=== PATIENT | female | born 1980 | race Caucasian/White ===

== ENCOUNTER 2024-03-26 09:15 | Emergency (ER) | payer OTHER, SELFPAY ==
[2024-03-26 09:19] VITALS: BP 154/97
--- NOTE | 2024-03-26 10:29 | ED.GENMED ---
History of Present Illness
General
Chief Complaint: Musculo-Skeletal Complaint
Source: patient
Exam Limitations: none
Time Seen by Provider: 03/26/24 10:13
Nursing documentation reviewed up to this point in time: agreed with
History of Present Illness
History of Present Illness:
43 y/o F with h/o GERD, PCOS, elevated BMI
here with known L meniscus tear from last week injury while she was OOT.
she went to a local ER in [place] where she was and ended up being admitted, had MRI showing the meniscus tear. she was given rx for oxycodone for pain and motrin and aleve which she has been taking; she ran out of the oxy and now pain is worse
she is having trouble using the walker
she has no brace because one would not fit on her knee
she has appt with [facility] in 4 days but says she cannot wait that long for pain medication
she denies any new injury since being home
she has pain an dsweling posterior and lateral knee on the L consistnet since the injury
she has a partial tear chronic on the R meniscus and feels this is also aggravated by her leaning on that leg more
no redness, warmth, to the knee, no fever, no foot drop, no numbness
pt is tearful
Past History
Past History
ED Past Medical History: Asthma, Psychiatric (Anxiety/depression) and Other (PCOS, migraine headaches)
ED Past Surgical History: Cardiac (Patent ductus arteriosus repair), and Orthopedic (Right knee)
Social History
Tobacco: Non-smoker
Alcohol: None
Personal:
Living: with family
Employment: Employed
Family History
Family History: Other (Noncontributory)
Review of Systems
Review of Systems
Allergies reviewed?: Yes
All Other Systems: Not applicable
Phy Exam
Physical Exam
Physical Exam:
GENERAL: Alert elevated BMI, tearful
HEAD: NCAT
CV: 2+ DP PULSES B/L
NEUROLOGICAL: Alert and oriented, no focal neuro deficits, , 5/5 strength, sensation intact, ambulation slight limp right leg
SKIN: Warm and dry, no erythema, no warmth to the knee
MUSCULOSKELETAL: mild to mod sweling to the L knee on inspection, normal skin
tender anteriorly
pain with any rom which is limited
calf normal
pulse dp normal
cap refill normal
ankle and foot normal
PSYCH: Normal and appropriate interaction.
Course
Orders/Labs/Results
Orders:
Orders
03/26/24 10:28
Case Management Consult ONCE
Case Management Consult: Durable Medical Equip
Vital Signs
Initial and Last Documented VS:
Initial Vital Signs
Temp Pulse Resp BP Pulse Ox
98.9 F 89 20 154/97 97
03/26/24 09:19 03/26/24 09:19 03/26/24 09:19 03/26/24 09:19 03/26/24 09:19
Last Documented Vital Signs
Temp Pulse Resp BP Pulse Ox
98.7 F 82 15 150/88 97
03/26/24 12:34 03/26/24 12:34 03/26/24 12:34 03/26/24 12:34 03/26/24 12:34
MDM/Problems Addressed
Differential Diagnosis Includes:
meniscus tear, knee pain
MDM/Problems Addressed:
new meniscus tear on MRI from a few days ago at outside facility
has scheduled ortho f/u
wlaker at home
no immboilization due to body habitus
but with inc pain
severe pain in left knee with some swellign
no redness/warmth
PDMP consulted; has had opiates in the past, recently from hospitalization as well as other abiton physicians but not chronically
pt is very tearful she has to wlak a distance for tomorrow
consulted case management for wheelchair to help her get around until can see ortho
short course oxycodone for pain
pt is aware we will not refill this
*Critical Care Note
Total Time (30-74mins, 75-104mins- exclusive of procedures): Not Applicable
ED Attending Note
-
Portions of this chart may have been created with voice recognition software.� Occasional wrong word or��sound alike� substitutions may have occurred due to the inherent limitations of voice recognition software.
Discharge Plan
Departure
Patient Disposition: Home (Routine Discharge)
Date of Disposition: 03/26/24
Time of Disposition:
Patient with high blood pressure during this ER visit?: Yes
Condition: Fair
Covid-19: Not Applicable
Discharge Problem:
Pain in left knee
Instructions: Knee Pain (DC)
Prescriptions:
New
meloxicam 15 mg tablet
15 mg PO DAILY Qty: 10 0RF
oxycodone 5 mg tablet
5 mg PO Q8H PRN (Reason: Pain) Qty: 9 0RF
Referrals:
NONE,* [Family Provider] -
Byron Tavera MD [Active] - Follow up in 5-7 days (ortho)
Activity Restrictions/Additional Instructions:
YOU SHOULD REST WHEN YOU CAN
ICE OFF AND ON
INSTEAD OF ALEVE AND MOTRIN TRY MELOXICAM 15 MG ONCE A DAY WITH SOMETHING IN YOUR STOMACH
TYLENOL 1000 MG 3 TIMES A DAY
AND FOR SEVERE PAIN OXYCODONE 5 MG EVERY 8 HOURS NEEDED
WE WILL NOT BE REFILLING PAIN MEDICATION FROM THE EMERGENCY DEPARTMENT
RETURN FOR ANY CONCERNS.
WE WERE ABLE TO ARRANGE FOR A WHEELCHAIR TO HELP YOU WITH THE TOMORROW.
Interventions
Interventions:
*Risk Screen - Suicide Last Done: 03/26/24 12:25
*General Assessment Last Done: 03/26/24 12:25
*Neglect/Abuse Screening Last Done: 03/26/24 12:25
ED- Fall Risk Assessment Last Done: 03/26/24 12:30
*ED COVID-19 Vaccine History Last Done: 03/26/24 12:25
*Nursing Disposition Last Done: 03/26/24 12:34
ED-Musculoskeletal Assessment Last Done: 03/26/24 12:33
Discharge Date and Time
Discharge Date/Time: 03/26/24 12:35
Print Language: INDONESIAN
--- NOTE | 2024-03-26 11:31 | CM ---
CM met with patient in room. Patient confirmed demgraphics. Patient stated that she has an up coming tomorrow and it worried that she won't be able to tolerate ambulating. CM ordered wheelchair from [facility]. Patient's given number for [employer]
to arrange for delivery when she arrives home. Patient is appreciative and will follow up with [facility].
MISSY updated ED PA.
[2024-03-26 12:09] VITALS: BMI 50.5
[2024-03-26 12:34] VITALS: BP 150/88
== END 2024-03-26 12:35 | disposition home or self-care (01) ==
LOC: EMR 09:15
PROVIDERS: EMERGENCY PHYSICIAN Student in an Organized Health Care Education/Training Program
DX: M25.562 Pain in left knee (principal); J45.909 Unspecified asthma, uncomplicated; F41.8 Other specified anxiety disorders; E28.2 Polycystic ovarian syndrome; K21.9 Gastro-esophageal reflux disease without esophagitis
CPT/HCPCS: 99282

== ENCOUNTER 2024-03-30 13:06 | Emergency (ER) | payer OTHER, SELFPAY ==
[2024-03-30] VITALS (9 sets, daily range): BP systolic 108–138; BP diastolic 61–92; BMI 59.6
[2024-03-30] MEDS: NITROSTAT (SUBLINGUAL) 0.4 MG SL ×2 (13:33→14:48)
[2024-03-30 13:40] LABS: % Basophils 0.3 % (0-2); % Eosinophils 0.6 % (0-6); % Immature Granulocytes 0.3 % (0-0.5); % Neutrophils 69.8 % (42.2-75.2); Absolute Eosinophils 0.1 10^3/uL (0-0.7); Absolute Lymphocytes 1.8 10^3/uL (1.2-3.4); Absolute Monocytes 0.5 10^3/uL (0.1-0.6); Absolute Neutrophils 5.6 10^3/uL (1.4-6.5); Hematocrit 33.6 % (37.0-47.0); Hemoglobin 10.7 g/dL (12.0-16.0); Mean Corp Hgb Conc. 31.8 g/dL (33.0-37.0); Mean Corpuscular Hgb 25.2 pg (27.0-31.0); Mean Corpuscular Volume 79.2 fL (81.0-99.0); Mean Platelet Volume 9.9 fL (7.4-10.4); Nucleated Red Blood Cells % 0 %; Platelet Count 235 10^3/uL (130-400); Red Blood Cell Count 4.24 10^6/uL (4.20-5.40); Red Cell Dist. Width 15.9 % (11.5-14.5)
[2024-03-30 13:50] LABS: ALT (SGPT) 40 U/L (0-35); AST (SGOT) 37 U/L (14-36); Albumin 3.5 g/dl (3.5-5.0); Alkaline Phosphatase 76 U/L (38-126); Blood Urea Nitrogen 13 mg/dl (7-17); Calcium 8.8 mg/dl (8.4-10.2); Carbon Dioxide 30 mmol/L (22-30); Chloride 105 mmol/L (98-107); Estimated Creatinine Clearance > 125 ml/min; Glucose 92 mg/dl (70-99); Potassium 4.6 mmol/L (3.5-5.1); Sodium 142 mmol/L (135-145); Total Bilirubin 0.4 mg/dl (0.2-1.3); Total Protein 6.3 g/dl (6.3-8.2); eGFR > 60.00
[2024-03-30 14:02] LABS: NT-proBNP 94.8 pg/ml; Troponin I < 0.012 ng/ml
[2024-03-30] MEDS: TYLENOL 1000 MG PO (14:47)
--- NOTE | 2024-03-30 14:55 | ED.GENMED ---
History of Present Illness
General
Chief Complaint: Chest Pain
Source: patient
Exam Limitations: none
Time Seen by Provider: 03/30/24 14:41
Nursing documentation reviewed up to this point in time: agreed with
History of Present Illness
History of Present Illness:
43-year-old female past medical history of reflux migraines PCOS anemia anxiety depression questionable diagnosis of heart failure repair presents to the ER for evaluation. Patient reports she instantly woke up at 4:30 in the morning with stabbing
pain under her bilateral breasts and into her chest and jaw she also feels pain in bilateral shoulders and right neck. She tells me apparently she has a diagnosis of congestive heart failure 'on her chart from [facility]' but has not seen cardiology
yet. She reports she did have lower extremity swelling and her doctor recommended cardiology follow-up but did not see them yet. She has appt end of .
Patient reports he normally does get short of breath with exertion this is not new. She is a smoker. She has not oral contraceptives. No prior history PE DVT. She denies lower extremity swelling now. She denies any history of reflux but does
report she is on Protonix because she is on meloxicam and is instructed to take this for her stomach.
Past History
Past History
ED Past Medical History: Asthma, Psychiatric (Anxiety/depression) and Other (PCOS, migraine headaches)
ED Past Surgical History: Cardiac (Patent ductus arteriosus repair), and Orthopedic (Right knee)
Social History
Tobacco: Non-smoker
Alcohol: None
Personal:
Living: with family
Employment: Employed
Family History
Family History: Other (Noncontributory)
Review of Systems
Review of Systems
Allergies reviewed?: Yes
All Other Systems: ROS reviewed and negative except as documented in HPI and ROS
Constitutional: Reports no symptoms; Denies fever, fatigue or chills
Respiratory: Reports trouble breathing (sob with exertion this is not new )
Cardiac: Reports chest pain
: Reports no symptoms
Musculoskeletal: Reports no symptoms
Skin: Reports no symptoms
Neurological: Reports no symptoms
Psychiatric: Reports no symptoms
Phy Exam
General Physical Exam
General Presentation: no apparent distress
General age: appears stated age
General Skin: warm and dry
General Habitus: obese
General Mental: alert
General Hydration: appears well hydrated
Cardiovascular Exam
Cardiovascular Exam: regular rate/rhythm, no murmur and normal peripheral pulses
Pulmonary Exam
Pulmonary Exam: lungs clear
Neurological Exam
Neurological Exam: alert and oriented x3
Musculoskeletal Exam
Musculoskeletal Exam: full ROM
Skin Exam
Skin Exam: normal color and warm/dry
Psychiatric Exam
Psychiatric Exam: normal mood/affect
Scores
Heart Score for Chest Pain Patients
STEMI patient?: Not applicable
Course
Orders/Labs/Results
Orders:
Orders
03/30/24 13:09
Electrocardiogram (*1) Urgent
Reason for Study: Chest Pain
CXR2 [CR Chest - 2 Views ] Urgent
Comment:
Reason For Exam: Chest Pain
03/30/24 13:10
EKG- Treatment ONCE
03/30/24 13:30
Complete Blood Count/With Diff Urgent
Comprehensive Metabolic Panel Urgent
NT-proBNP Urgent
Troponin I Urgent
03/30/24 13:31
Nitroglycerin Sublingual [Nitrostat (Sublingual)] 0.4 mg .ROUTE .STK-MED ONE
03/30/24 13:32
Nitroglycerin Sublingual [Nitrostat (Sublingual)] 0.4 mg SL NOW STA
03/30/24 14:46
Acetaminophen [Tylenol] 1,000 mg .ROUTE .STK-MED ONE
03/30/24 14:47
Acetaminophen [Tylenol] 1,000 mg PO NOW STA
Nitroglycerin Sublingual [Nitrostat (Sublingual)] 0.4 mg SL NOW STA
03/30/24 16:30
D-Dimer Urgent
03/30/24 17:34
CT Chest Pe Study Urgent
Comment:
Reason For Exam: cp
03/30/24 18:31
Diphenhydramine [Benadryl] 50 mg IV NOW STA
Hydrocortisone Sod Succinate [Solu-Cortef] 200 mg IV NOW STA
03/30/24 19:51
Electrocardiogram (*1) Stat
Reason for Study: Other
Other Reason for Exam: chest pain
EKG- Treatment ONCE
03/30/24 20:18
Troponin I Urgent
Abnormal Lab Results
03/30/24 03/30/24
13:30 16:30
Hgb 10.7 L g/dL
(12.0-16.0)
Hct 33.6 L %
(37.0-47.0)
MCV 79.2 L fL
(81.0-99.0)
MCH 25.2 L pg
(27.0-31.0)
MCHC 31.8 L g/dL
(33.0-37.0)
RDW 15.9 H %
(11.5-14.5)
D-Dimer 0.58 H ug/mlFEU
(0.00-0.50)
AST 37 H U/L
(14-36)
ALT 40 H U/L
(0-35)
03/30/24 13:30
03/30/24 13:30
Vital Signs
Initial and Last Documented VS:
Initial Vital Signs
Temp Pulse Resp BP Pulse Ox
98.4 F 77 14 116/61 98
03/30/24 13:24 03/30/24 13:24 03/30/24 13:24 03/30/24 13:24 03/30/24 13:24
Last Documented Vital Signs
Temp Pulse Resp BP Pulse Ox
98.7 F 74 14 134/84 98
03/30/24 22:04 03/30/24 19:39 03/30/24 19:39 03/30/24 21:19 03/30/24 19:39
MDM/Problems Addressed
Differential Diagnosis Includes:
Not limited to muscular pain, reflux, less likely ACS, less likely CHF, less likely PE
MDM/Problems Addressed:
Patient is a 43-year-old female who presents here for evaluation of chest pain around her bilateral rib area that she noticed at 430 this morning. She apparently is on Protonix because she is on meloxicam for her left knee meniscus. She denies
however reflux. She reports pain has persisted since 4:30 AM. She denies any new associated shortness of breath she does have some shortness of breath exertion that is not new. She is seeing cardiology at the end of March at [facility] for
questionable diagnosis of CHF due to lower extremity edema. She has no lower extremity edema on exam now. She presents awake alert . she was given NTG prior to my exam that 'did not help.'
She has been very sleepy throughout the ER exam. She is in no acute distress and does wake to voice stimuli. When I ask her about being sleepy she tells me she [place] the [place]. Her BNP is 94.8 her cardiac
troponin is normal. Her chest x-ray shows mild cardiomegaly. d dimer mildly elevated . ct ordered. will repeat trop /ekg however pt feeling better. will plan for d/c home with her cardiology follow-up as she is seeing [facility] cardiology at the
end of the month.
*Radiology
Radiology exam reviewed: radiology read reviewed
*Pulse Oximetry
Patient hypoxic: no
*EKG
Interpreted by ED Provider?: Yes
Interpretation: normal
Heart Rate: 72
Rhythm: sinus
Ischemia: no ischemia
*Critical Care Note
Total Time (30-74mins, 75-104mins- exclusive of procedures): Not Applicable
ED Attending Note
-
Portions of this chart may have been created with voice recognition software.� Occasional wrong word or��sound alike� substitutions may have occurred due to the inherent limitations of voice recognition software.
Discharge Plan
Departure
Patient Disposition: Home (Routine Discharge)
Date of Disposition: 03/30/24
Time of Disposition: 22:16
Patient with high blood pressure during this ER visit?: No
Condition: Fair
Covid-19: Not Applicable
Discharge Problem:
Chest pain
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
Prescriptions:
No Action
meloxicam 15 mg tablet
15 mg PO DAILY Qty: 10 0RF
oxycodone 5 mg tablet
5 mg PO Q8H PRN (Reason: Pain) Qty: 9 0RF
Referrals:
UNKNOWN - PT DOES,NOT KNOW [Family Provider] -
Activity Restrictions/Additional Instructions:
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 ReTurn for any worsening of symptoms.
Interventions
Interventions:
*Risk Screen - Suicide Last Done: 03/30/24 13:10
*General Assessment Last Done: 03/30/24 13:11
*Neglect/Abuse Screening Last Done: 03/30/24 13:10
ED- Fall Risk Assessment Last Done: 03/30/24 13:11
*ED COVID-19 Vaccine History Last Done: 03/30/24 13:10
*Nursing Disposition Last Done: 03/30/24 22:48
ED- Cardiac Assessment Last Done: 03/30/24 13:22
Discharge Date and Time
Discharge Date/Time: 03/30/24 22:48
Print Language: ITALIAN
[2024-03-30 16:50] LABS: D-Dimer 0.58 ug/mlFEU (0.00-0.50)
[2024-03-30] MEDS: BENADRYL 50 MG IV (18:55)
[2024-03-30] MEDS: SOLU-CORTEF 200 MG IV (18:55)
[2024-03-30 20:47] LABS: Troponin I < 0.012 ng/ml
== END 2024-03-30 22:48 | disposition home or self-care (01) ==
LOC: EMR 13:06
PROVIDERS: Emergency Medicine; Nurse Practitioner; EMERGENCY PHYSICIAN Emergency Medicine
DX: R07.9 Chest pain, unspecified (principal); J45.909 Unspecified asthma, uncomplicated; I51.7 Cardiomegaly; R79.1 Abnormal coagulation profile
CPT/HCPCS: 99285; 96374; 96375; 71046; 71275; 80053; 83880; 84484; 85025; 85379; 93005; Q9967

== ENCOUNTER 2025-04-17 09:10 | Emergency (ER) | payer SELFPAY ==
[2025-04-17 09:13] VITALS: BP 147/83
[2025-04-17 09:33] VITALS: BP 116/69
[2025-04-17 09:34] VITALS: BP 116/69; BMI 56.4
--- NOTE | 2025-04-17 09:48 | ED.MUSCINJ ---
HPI-Injury
General
Chief Complaint: Fall
Source: patient
Exam Limitations: none
Time Seen by Provider: 04/17/25 09:36
Nursing documentation reviewed up to this point in time: agreed with
History of Present Illness-Injury
Initial Injury comments:
Note:
CHIEF COMPLAINT(S)
Fall resulting in pain to the leg.
HISTORY OF PRESENT ILLNESS
The patient is a 44-year-old female who presented after sustaining a fall yesterday evening. The patient reported missing a step and buckling as she fell. 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 Post-fall,
she was able to walk but experienced pain upon ambulation. She identifies the area of pain primarily around the leg. The patient also reports having a headache following the fall, although she denies hitting her head during the incident. She
describes the pain as persistent since last night.
The patient reports taking a morning medication, unspecified in name, and also mentioned previously being advised to take it in the evening. Additionally, she has been informed by a healthcare provider of having a condition resembling non-alcoholic
fatty liver disease. She denies alcohol consumption.
PAST MEDICAL AND SURIGICAL HISTORY
The patient reports a history of a rash reaction after receiving Toradol for breast surgery in the past.
SOCIAL DETERMINANTS AFFECTING HEALTH
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
REVIEW OF SYSTEMS
- Head: Reports headache without head trauma.
- Musculoskeletal: Pain in the leg following a fall.
- Liver: Diagnosed with non-alcoholic fatty liver disease.
PHYSICAL EXAM
General: Alert, no acute distress.
Skin: Warm, dry.
Head: Normocephalic, atraumatic. No visible signs of trauma.
Neck: Supple, trachea midline.
Eyes, Ears, Nose, Mouth, and Throat: Oral mucosa moist.
Cardiovascular: Normal peripheral perfusion, no edema.
Respiratory: Respirations are non-labored.
Gastrointestinal: Abdomen nondistended.
Back: Normal range of motion, Normal alignment.
Musculoskeletal: Normal Range of Motion, normal strength, but localized pain noted on examination of the leg.
Neurological: Alert and oriented to person, place, time, and situation. No focal neurological deficit observed.
Psychiatric: Cooperative, appropriate mood & affect.
PLAN
1. Perform X-rays of the back, hip, and pelvis to evaluate for any fractures or injuries.
2. Consider applying a lidocaine patch for pain management.
3. Avoid Toradol due to history of rash reaction; explore alternative pain management options.
4. Monitor symptom progression and reevaluate pain management strategies as needed.
DIFFERENTIAL DIAGNOSIS
The Differential Diagnosis includes, in no particular order and is not limited to:
1. Soft tissue injury (sprain/strain)
2. Muscle contusion
3. Ligament tear
4. Fracture
5. Joint dislocation
6. Herniated disc
7. Muscle spasm
8. Radiculopathy
9. Bursitis
10. Tendonitis
CARE-UPDATE
04/17/25 - 16:40
Prednisone initiated for inflammation management. Alternatives limited due to Tylenol restrictions and allergies. Lyrica continued. No neurologic or fracture complications observed. Patient cleared for discharge.
Disposition:
SUMMARY OF ENCOUNTER
The patient, a 44-year-old female, presented to the emergency department following a fall that resulted in persistent leg pain and a headache. 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 An evaluation
was conducted to rule out serious injuries. X-rays of the back, hip, and pelvis were performed, showing no signs of fractures or any requirement for further imaging. Management included pain evaluation and a course of prednisone to manage
inflammation.
DISPOSITION
Discharge
ASSESSMENT
Lumbar strain and left hip strain
PLAN
Administer a short course of prednisone for inflammation management and provide pain management advice. Ensure the patient understands there are no signs of fractures or neurological deficits based on the x-rays.
INDEPENDENT REVIEW OF LABS AND INTERPRETATION OF TESTS
- My independent interpretation of the x-rays of the back, hip, and pelvis shows no signs of fractures.
PATIENT EDUCATION AND COUNSELING
The patient was educated about the diagnosis of lumbar strain and left hip strain, including the prescribed course of prednisone for inflammation, and advised on appropriate pain management strategies.
FOLLOW-UP INSTRUCTIONS
The patient was instructed that no further imaging or hospital admission was necessary and to follow up with pain management specialists if needed.
MEDICATION RECONCILIATION
A short course of prednisone was provided for managing inflammation.
MEDICAL DECISION MAKING
- Number and Complexity of Problems Addressed: Chronic conditions affecting care include history of non-alcoholic fatty liver disease. Differential diagnosis considered soft tissue injury (sprain/strain), muscle contusion, ligament tear, fracture,
joint dislocation, herniated disc, muscle spasm, radiculopathy, bursitis, tendonitis.
- Data:
- Category 1: X-rays of the back, hip, and pelvis were independently interpreted, confirming no fractures.
- Risk:
- Consideration of Admission/Observation: Escalation of care, including admission/observation, was considered given the complexity and risk of the patients presenting complaint, exam findings, and her underlying comorbidities. However, ultimately
the patient was deemed safe for outpatient management with close follow-up. The work-up was reassuring, and no acute life/organ-threatening processes were revealed. The patients symptoms were well-controlled upon reevaluation, and the reexamination
was reassuring. Vitals were stable, the patient was agreeable with discharge, and reliable for follow-up.
DIAGNOSIS
- Lumbar strain (ICD-10: S39.012A)
- Left hip strain (ICD-10: S73.191A)
Past History
Past History
ED Past Medical History: Asthma, Psychiatric (Anxiety/depression) and Other (PCOS, migraine headaches)
ED Past Surgical History: Cardiac (Patent ductus arteriosus repair), and Orthopedic (Right knee)
Social History
Tobacco: Non-smoker
Alcohol: None
Personal:
Living: with family
Employment: Employed
Family History
Family History: Other (Noncontributory)
Phy Exam
Physical Exam
Physical Exam:
.
Injury Course
Orders/Labs/Results
Orders:
Orders
04/17/25 09:44
Hip, Left 2-3 Views [CR Hip - LT w/wo Pel 2-3 Vw*] Urgent
Comment:
Reason For Exam: left hip pain after fall
Include a pelvis x-ray?: Yes
Lumbar Spine Complete, 4 View [CR Lumbar Spine Comp Min 4 Vw*] Urgent
Comment:
Reason For Exam: fall, left low back pain
04/17/25 10:16
Lidocaine [Lidocaine 4% Patch] 1 patch TOPICAL STAT STA
Apply Lidocaine patch(s) to:: left low back
Test Result ONCE
04/17/25 10:19
HCG, Urine Qualitative Screen Urgent
Date Specimen was Collected: 04/17/25
Time Specimen was Collected: 10:18
*Pulse Oximetry
SaO2: 98
Oxygen Mode of Delivery: Room air
Patient hypoxic: no
*Critical Care Note
Total Time (30-74mins, 75-104mins- exclusive of procedures): Not Applicable
ED Attending Note
-
Portions of this chart may have been created with voice recognition software.� Occasional wrong word or��sound alike� substitutions may have occurred due to the inherent limitations of voice recognition software.
Discharge Plan
Departure
Patient Disposition: Home (Routine Discharge)
Date of Disposition: 04/17/25
Time of Disposition: 12:17
Patient with high blood pressure during this ER visit?: No
Condition: Good
Discharge Problem:
Strain of left hip, Lumbar strain
Instructions: Low back pain in adults, Hip pain - ED (DC)
Prescriptions:
New
prednisone 50 mg tablet
50 mg PO DAILY Qty: 5 0RF
No Action
meloxicam 15 mg tablet
15 mg PO DAILY Qty: 10 0RF
oxycodone 5 mg tablet
5 mg PO Q8H PRN (Reason: Pain) Qty: 9 0RF
Referrals:
Leonidas Leigh MD [Active, Anesthesiology] - Call in 1-3 days for appt
Chris Lucas DO [Family Provider]
Interventions
Interventions:
*Risk Screen - Suicide Last Done: 04/17/25 09:13
*General Assessment Last Done: 04/17/25 09:13
*Neglect/Abuse Screening Last Done: 04/17/25 09:13
*ED- Fall Risk Assessment Last Done: 04/17/25 09:41
*ED COVID-19 Vaccine History Last Done: 04/17/25 09:41
*ED Influenza Vaccine History Last Done: 04/17/25 09:41
*Nursing Disposition Last Done: 04/17/25 12:48
ED-Musculoskeletal Assessment Last Done: 04/17/25 11:04
ED- Neurological Assessment Last Done: 04/17/25 11:04
ED-Skin Assessment Last Done: 04/17/25 11:04
Discharge Date and Time
Discharge Date/Time: 04/17/25 12:52
Print Language: PALAUAN
[2025-04-17 10:48] LABS: HCG, Urine Qualitative Screen Negative
[2025-04-17] MEDS: LIDOCAINE 4% PATCH 1 PATCH TOPICAL (10:51)
[2025-04-17 11:12] VITALS: BP 109/76
[2025-04-17 12:47] VITALS: BP 100/72
== END 2025-04-17 12:52 | disposition home or self-care (01) ==
LOC: EMR 09:10
PROVIDERS: EMERGENCY PHYSICIAN Emergency Medicine; FAMILY PHYSICIAN Internal Medicine
DX: S76.012A Strain of muscle, fascia and tendon of left hip, initial encounter (principal); S39.012A Strain of muscle, fascia and tendon of lower back, initial encounter; J45.909 Unspecified asthma, uncomplicated; K76.0 Fatty (change of) liver, not elsewhere classified; E28.2 Polycystic ovarian syndrome; F41.9 Anxiety disorder, unspecified; F32.A Depression, unspecified; W01.0XXA Fall on same level from slipping, tripping and stumbling without subsequent striking against object, initial encounter; Y99.0 Civilian activity done for income or pay
CPT/HCPCS: 99283; 72110; 73502; 81025